=== PATIENT | female | born 1990 | race Caucasian/White ===

== ENCOUNTER 2018-12-19 08:34 | Inpatient (IN) ==
[2018-12-19] MEDS ORDERED: OXYTOCIN 30 UNITS/500 ML BAG IV PRN (20:22)
[2018-12-19] MEDS ORDERED: LACTATED RINGER'S 1,000 ML IV PRN (20:22)
[2018-12-19 21:00] LABS: Hematocrit (blood only) 27.6 % (37-47); Hemoglobin 8.5 g/dL (12.0-16.0); Mean Corpuscular Volume 71.9 fL (80-100); Mean Platelet Volume 9.7 fL (7.4-10.4); Platelet Count 253 K/uL (130-400); RDW Coefficient of Variation 15.8 % (11.5-14.5); RDW Standard Deviation 42.2 fL (36.4-46.3); Red Blood Count 3.84 M/uL (4.2-5.4); White Blood Count 14.36 K/uL (4.8-10.8)
[2018-12-19 21:17] LABS: Mean Corpuscular Hgb Conc 30.8 g/dL (32-36)
--- NOTE | 2018-12-19 22:17 | Obstetrical Progress Note ---
Date of Service December 19, 2018 Subjective Admit Note 28 F P1001 at 36 weeks admitted for induction of labor for cholestasis of . GBS is negative. Cervix 3/50/-2/vertex/anterior/soft. Will start induction with Cytotec 50 mg PO. EFW 7 lbs. Anticipate vaginal delivery. Physical Exam Vital Signs (Past 24 Hours): Last Vital Signs Temp 36.8 C 12/19/18 20:25 Pulse 71 12/19/18 20:25 Resp 18 12/19/18 20:25 BP 138/86 12/19/18 20:25
[2018-12-19] MEDS ORDERED: miSOPROStol 50 MCG TAB PO ONE (23:00)
[2018-12-19] MEDS: URSODIOL 300 MG CAP PO SCH (23:09)
[2018-12-20] MEDS ORDERED: miSOPROStol 50 MCG TAB PO SCH
[2018-12-20] MEDS: LACTATED RINGER'S 1,000 ML IV SCH ×3 (02:30→18:34)
[2018-12-20] MEDS: URSODIOL 300 MG CAP PO SCH ×2 (08:52→21:00)
[2018-12-20] MEDS ORDERED: LACTATED RINGER'S 1,000 ML IV PRN ×2 (09:29→21:00)
[2018-12-20] MEDS ORDERED: OXYTOCIN 30 UNITS/500 ML BAG IV PRN ×2 (09:29→22:25)
--- NOTE | 2018-12-20 09:29 | Labor Progress Brief Note ---
Date of Service December 20, 2018 Met pt and family Induction day #2 for cholestasis of received one doses cytotec FHR; CAT1 VE; /-2 irreg ctx will start pitocin Physical Exam Vital Signs (Past 24 Hours): Last Vital Signs Temp 37.0 C 12/20/18 07:40 Pulse 93 H 12/20/18 07:41 Resp 20 12/20/18 07:40 BP 139/73 12/20/18 07:41
--- NOTE | 2018-12-20 19:19 | Labor Progress Brief Note ---
Date of Service December 20, 2018 Pt doing well Induction for cholestasis of FHR; CAT1 Ctx; Minimal Pit; 20MU AROM- clear Physical Exam Vital Signs (Past 24 Hours): Last Vital Signs Temp 37.0 C 12/20/18 19:01 Pulse 82 12/20/18 19:09 Resp 18 12/20/18 19:01 BP 137/89 12/20/18 19:09
[2018-12-20] MEDS ORDERED: ePHEDrine sulfate 50 MG/ML AMP ONE (20:22)
[2018-12-20] MEDS ORDERED: fentaNYL citrate 100 MCG/2 ML VIAL ONE (20:22)
[2018-12-20] MEDS ORDERED: BUPIVACAINE 0.25% 30 ML VIAL ONE (20:22)
[2018-12-20] MEDS ORDERED: fentaNYL 2MCG/ML ROPIV 1.25MG/ML 100 ML BAG EPI ONE (20:23)
--- NOTE | 2018-12-20 20:32 | Anesthesiology Consultation ---
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" Allergy Severe HIVES Uncoded 12/19/18 22:07 Medications Home Medications Medication Instructions Recorded Confirmed Last Taken omeprazole 20 mg PO DAILY 12/19/18 12/19/18 12/19/18 18:00 vit no.[id number] 1 tab PO DAILY 12/19/18 12/19/18 12/19/18 08:00 [ Vitamin] ursodiol 300 mg PO BID 12/19/18 12/19/18 12/19/18 18:00 Active Medications Generic Name Dose Route Start Last Admin Trade Name Freq PRN Reason Stop Dose Admin Lactated Ringer's 1,000 mls @ 125 mls/hr 12/19/18 20:30 12/20/18 18:34 Lr IV 12/21/18 20:29 125 mls/hr .Q8H JOSH Administration Oxytocin 30 units in 500 mls @ 20 mls/hr 12/20/18 09:29 12/20/18 18:03 Pitocin IV 12/22/18 09:28 1.2 units/hr .Q24H PRN 20 mls/hr Labor Induction/Augmentation Titration Protocol 1.2 UNITS/HR Ursodiol 300 mg 12/19/18 22:30 12/20/18 08:52 Actigall PO 01/18/19 22:29 300 mg BID JOSH Administration Past Medical History Medical History Cholestasis during had with 1st and this , taking Ursodil 300mg BID GERD (gastroesophageal reflux disease) Controlled with medication Graves disease no meds during Spontaneous vaginal delivery 2017 [facility] [place] teeth removed at age 18 Past Surgical History Surgical History S/P wisdom tooth extraction Past Anesthesia History No Hx of Anesthesia Complications and No Family Hx of Anesthesia Complications History of PONV No Motion Sickness Screening History of Motion Sickness: No Social History Smoking Status: Never smoker Do You Dip or Chew Tobacco: No Hx Alcohol Use: No Hx Substance Use: No substance use type: does not use Exercise / Class Metabolic Activity II 4-5 Yardwork/Stairs/Walk up hill Physical Exam Vital Signs Last Vital Signs Temp 37.0 C 12/20/18 19:01 Pulse 81 12/20/18 20:20 Resp 18 12/20/18 20:01 BP 144/83 H 12/20/18 20:05 Pulse Ox 100 12/20/18 20:20 Constitutional + obese ENMT Mouth: no TMJ abnormality and no TMJ clicking Thyromental Distance: > or= 3.5 Finger Breadths Mallampati Class: II Neck normal visual inspection; neck extension not limited Respiratory Auscultation: lungs clear to auscultation bilaterally Cardiovascular Rate/Rhythm: regular rate and regular rhythm Musculoskeletal Spine: normal cervical ROM and no pain with cervical ROM Psychiatric Orientation: alert and oriented x 3 Testing Laboratory Results 12/19/18 20:52
[2018-12-20] MEDS ORDERED: DiphenhydrAMINE HCL 50 MG/ML VIAL IV PRN (21:00)
[2018-12-20] MEDS ORDERED: fentaNYL 2MCG/ML ROPIV 1.25MG/ML 100 ML BAG EPI PRN (21:00)
[2018-12-20] MEDS ORDERED: NALOXONE HCL 1 MG in SODIUM CHLORIDE 0.9% 1000ML 1,000 ML IV PRN (21:00)
[2018-12-20] MEDS ORDERED: NALBUPHINE HCL INJ 10 MG/ML AMP IV PRN (21:00)
[2018-12-20] MEDS ORDERED: ePHEDrine sulfate 50 MG/ML AMP IV PRN (21:00)
[2018-12-20] MEDS ORDERED: NALOXONE HCL 0.4 MG/1 ML VIAL/CARP IV PRN (21:00)
[2018-12-20] MEDS ORDERED: ONDANSETRON INJ 2 MG/ML 2 ML VIAL IV PRN (21:00)
[2018-12-20] MEDS ORDERED: miSOPROStol 200 MCG TAB ONE (22:17)
[2018-12-20] MEDS ORDERED: METHYLERGONOVINE MALEATE 0.2 MG/ML AMP ONE (22:17)
[2018-12-20] MEDS ORDERED: HYDROCORTISONE ACETATE 25 MG SUPP PR PRN (22:25)
[2018-12-20] MEDS ORDERED: SUPERCREAM 0.870% 15 GM JAR EXT PRN (22:25)
[2018-12-20] MEDS ORDERED: BENZOCAINE 20% AER SPR 82.5 GM CAN EXT PRN (22:25)
[2018-12-20] MEDS ORDERED: OXYCODONE/ACETAMINOPHEN 5mg/325mg TAB PO PRN (22:25)
[2018-12-20] MEDS ORDERED: DIPHTHERIA/TETANUS/PERTUSSIS 0.5 ML SYR/VIAL IM ONE (22:25)
[2018-12-20] MEDS ORDERED: IBUPROFEN 600 MG TAB PO PRN (22:25)
[2018-12-20] MEDS ORDERED: miSOPROStol 200 MCG TAB PR ONE (22:25)
[2018-12-20] MEDS ORDERED: METHYLERGONOVINE MALEATE 0.2 MG/ML AMP IM ONE (22:25)
[2018-12-20] MEDS ORDERED: BISACODYL 10 MG SUPP PR PRN (22:25)
[2018-12-20] MEDS ORDERED: ACETAMINOPHEN W/CODEINE #3 1 TAB PO PRN (22:25)
--- NOTE | 2018-12-21 04:34 | Delivery Summary ---
DATE OF OPERATION: 12/20/2018 DELIVERY NOTE The patient delivered a live male in right occiput anterior presentation. There was no nuchal cord. Infant was delivered, placed on mother's abdomen. Cord was clamped and cut. After 1 minute cord blood was obtained. Placenta was spontaneously delivered. Inspection of the placenta shows a 3-vessel cord. Placenta otherwise appeared grossly normal. Estimated blood loss was 600 mL. Inspection of the perineum shows a first-degree midline laceration which was repaired with Vicryl suture. All instruments were removed from the vagina and accounted for x2 including needles and retractors and sponges. There was good hemostasis. Baby and mother are stable to recovery room. I attest to the content of the Intraoperative Record and any orders documented therein. Any exception s are noted below.
[2018-12-21 06:39] LABS: Hematocrit (blood only) 28.3 % (37-47); Hemoglobin 8.8 g/dL (12.0-16.0); Mean Corpuscular Hgb Conc 31.1 g/dL (32-36); Mean Corpuscular Volume 71.1 fL (80-100); Mean Platelet Volume 9.8 fL (7.4-10.4); Platelet Count 235 K/uL (130-400); RDW Coefficient of Variation 15.9 % (11.5-14.5); RDW Standard Deviation 41.9 fL (36.4-46.3); Red Blood Count 3.98 M/uL (4.2-5.4); White Blood Count 13.15 K/uL (4.8-10.8)
[2018-12-21] MEDS: ACETAMINOPHEN 325 MG TAB PO PRN ×2 (08:00→20:28)
--- NOTE | 2018-12-21 08:22 | Anesthesia Procedure Note ---
Date of Service December 21, 2018 Anesthesia Post Epidural Note Vital Signs Vital Signs: Temp Pulse Resp BP Pulse Ox 36.8 C 82 18 143/80 H 99 12/21/18 03:25 12/21/18 03:25 12/21/18 03:25 12/21/18 03:25 12/20/18 22:05 Notes Mental Status: alert / awake / arousable Nausea / Vomiting: adequately controlled Pain: adequately controlled Airway Patency, RR, SpO2: stable & adequate BP & HR: stable & adequate Hydration State: stable & adequate Neuraxial Anesthesia: was administered Anesthetic Complications: no major complications apparent Epidural: Removed without complications and With tip intact
[2018-12-21] MEDS ORDERED: FERROUS SULFATE 325 MG TAB PO SCH ×2 (09:00→21:00)
[2018-12-21] MEDS: URSODIOL 300 MG CAP PO SCH ×2 (09:14→20:28)
[2018-12-21] MEDS: PRENATAL VITAMIN 1 TAB PO SCH (09:14)
[2018-12-21] MEDS: DOCUSATE SODIUM 100 MG CAP PO SCH ×2 (09:15→20:28)
--- NOTE | 2018-12-21 09:18 | Obstetrical Progress Note ---
Date of Service December 21, 2018 Subjective Patient is seen and examined. She feels well, no complaints. Ambulating without dizziness Voiding without difficulty Tolerating regular diet with out N&V Bleeding is minimal No fever/ chills/ CP/ SOB/ N&V/ Leg pain Bottle feeding without problems Vital Signs Temp Pulse Pulse Pulse Resp BP BP 12/21/18 07:50 36.8 C 80 20 139/82 12/21/18 03:25 36.8 C 82 18 143/80 H 12/21/18 00:50 37.1 C 87 18 12/21/18 00:30 86 141/72 H 12/20/18 23:57 78 124/70 12/20/18 23:16 73 140/85 12/20/18 23:01 60 131/70 12/20/18 22:46 65 134/59 L 12/20/18 22:38 67 124/59 L 12/20/18 22:16 90 139/68 12/20/18 22:12 90 137/63 12/20/18 22:05 132 H 12/20/18 22:00 101 H 18 12/20/18 21:55 105 H 12/20/18 21:50 76 12/20/18 21:47 81 126/82 12/20/18 21:45 62 18 12/20/18 21:40 62 12/20/18 21:35 59 L 12/20/18 21:31 58 L 116/62 12/20/18 21:30 60 18 12/20/18 21:25 61 12/20/18 21:20 60 BP Pulse Ox 12/21/18 07:50 12/21/18 03:25 12/21/18 00:50 147/89 H 12/21/18 00:30 12/20/18 23:57 12/20/18 23:16 12/20/18 23:01 12/20/18 22:46 12/20/18 22:38 12/20/18 22:16 12/20/18 22:12 12/20/18 22:05 99 12/20/18 22:00 100 12/20/18 21:55 100 12/20/18 21:50 99 12/20/18 21:47 92 12/20/18 21:45 98 12/20/18 21:40 99 12/20/18 21:35 100 12/20/18 21:31 12/20/18 21:30 100 12/20/18 21:25 100 12/20/18 21:20 100 Lab Results 12/19/18 12/21/18 Range/Units 20:52 06:20 WBC 14.36 H 13.15 H (4.8-10.8) K/uL RBC 3.84 L 3.98 L (4.2-5.4) M/uL Hgb 8.5 L 8.8 L (12.0-16.0) g/dL Hct 27.6 L 28.3 L (37-47) % MCV 71.9 L 71.1 L (80-100) fL MCH 22.1 L 22.1 L (25-34) pg MCHC 30.8 L 31.1 L (32-36) g/dL RDW Std Deviation 42.2 41.9 (36.4-46.3) fL RDW Coeff of Siobhan 15.8 H 15.9 H (11.5-14.5) % Plt Count 253 235 (130-400) K/uL MPV 9.7 9.8 (7.4-10.4) fL PE: General: Alert, orientedx3, NAD Abd: soft, NT, fundus firm, below Umbilicus Perineum intact, Lochia rubra minimal Ext; NT, no edema AP: 28 yo s/p , ppd# 1 VSS Afebrile doing well Anemic, asymptomatic: iron bid Continue routine care All questions were answered D/C home tomorrow Physical Exam Vital Signs (Past 24 Hours): Last Vital Signs Temp 36.8 C 12/21/18 07:50 Pulse 80 12/21/18 07:50 Resp 20 12/21/18 07:50 BP 139/82 12/21/18 07:50 Pulse Ox 99 12/20/18 22:05
[2018-12-21] MEDS: FERROUS SULFATE 325 MG TAB PO SCH ×2 (09:58→20:29)
[2018-12-21] MEDS ORDERED: BISACODYL 5 MG TABEC PO SCH (20:00)
[2018-12-22 07:00] LABS: Hematocrit (blood only) 30.8 % (37-47); Hemoglobin 9.3 g/dL (12.0-16.0)
[2018-12-22] MEDS: PRENATAL VITAMIN 1 TAB PO SCH (08:03)
[2018-12-22] MEDS: URSODIOL 300 MG CAP PO SCH (08:03)
[2018-12-22] MEDS: DOCUSATE SODIUM 100 MG CAP PO SCH (08:03)
[2018-12-22] MEDS: FERROUS SULFATE 325 MG TAB PO SCH (08:05)
--- NOTE | 2018-12-22 10:14 | Obstetrical Progress Note ---
Date of Service December 22, 2018 Subjective Patient is seen and examined. She feels well, no complaints. Ambulating without dizziness Voiding without difficulty Tolerating regular diet with out N&V Bleeding is minimal No fever/ chills/ CP/ SOB/ N&V/ Leg pain Bottle feeding without problems Vital Signs Temp Pulse Pulse Resp BP BP Pulse Ox 12/22/18 07:37 36.8 C 98 H 20 139/93 12/21/18 23:00 37 C 80 18 129/78 12/21/18 20:20 36.6 C 97 H 18 139/87 12/21/18 15:40 36.5 C 77 18 142/80 H 98 12/21/18 12:00 36.8 C 87 20 140/93 12/22/18 Range/Units 06:43 Hgb 9.3 L (12.0-16.0) g/dL Hct 30.8 L (37-47) % PE: General: Alert, orientedx3, NAD Abd: soft, NT, fundus firm, below Umbilicus Perineum intact, Lochia rubra minimal Ext; NT, no edema AP: 28 yo s/p , ppd# 2 VSS Afebrile doing well Continue routine care All questions were answered D/C home , f/u in office Physical Exam Vital Signs (Past 24 Hours): Last Vital Signs Temp 36.8 C 12/22/18 07:37 Pulse 98 H 12/22/18 07:37 Resp 20 12/22/18 07:37 BP 139/93 12/22/18 07:37 Pulse Ox 98 12/21/18 15:40
== END 2018-12-22 14:45 | disposition home or self-care (01) | DRG 805 ==
LOC: MERGE 20:05 → 4S2 20:05 → 4S1 12-20 00:05 → 4S2 12-21 01:22